=== PATIENT | female | born 1955 | race Caucasian/White ===

== ENCOUNTER 2018-08-21 11:35 | Observation (INO) | payer OTHER, SELFPAY ==
[2018-08-21] VITALS (15 sets, daily range): BP systolic 91–202; BP diastolic 49–101; PULSE 72–115; RESP 12–20; TEMP 36.1–37.3; O2SAT 92–100; BMI 27.4
--- NOTE | 2018-08-21 | DI.RAD.S_ITS ---
PROCEDURE: XR ANKLE LT MIN 3V INDICATIONS: LEFT ANKLE FRACTURE TECHNIQUE: 3 views of the ankle were acquired. COMPARISON: [facility], CR, XR ANKLE LT MIN 3V, 08/21/2018, 11:59. FINDINGS: 3 intraoperative fluoroscopy images demonstrate open reduction and internal fixation of distal tibial and distal fibular fractures. There is improved alignment. IMPRESSION: Open reduction and internal fixation of distal tibial and fibular fractures. Dictated by: Nilson Ruiz M.D. on 08/21/2018 at 17:06 Approved by: Nilson Ruiz M.D. on 08/21/2018 at 17:08
--- NOTE | 2018-08-21 11:55 | DI.RAD.S_ITS ---
PROCEDURE: XR ANKLE LT MIN 3V INDICATIONS: injury, deformity, pain TECHNIQUE: 3 views of the ankle were acquired. COMPARISON: None. FINDINGS: Bones: There is a mildly comminuted fracture identified with slight posterior angulation of the distal fibula shaft. An additional fracture is evident involving the lateral margin of the tibial plateau, which may represent a posterior malleolar fracture. Corresponding widening of the distal tibiofibular syndesmosis is evident. There is a transverse fracture evident extending through the lateral malleolus with lateral displacement of the distal fracture fragment by approximately 8 mm. Offset of the ankle mortise is present. No additional fractures are seen. No suspicious osseous lesions are evident. There is no dislocation. Soft tissues: Soft tissue edema about the ankle is present. There likely is an ankle effusion. IMPRESSION: 1. Comminuted and essentially nondisplaced fracture of the distal fibula. 2. Medial and posterior malleolar fractures of the distal tibia. 3. Widening of the distal tibiofibular syndesmosis. Dictated by: Johnie Valdes M.D. on 08/21/2018 at 11:25 Approved by: Johnie Valdes M.D. on 08/21/2018 at 11:33
--- NOTE | 2018-08-21 12:01 | PC.NURSE ---
Pt reports I had to hold my foot on. Open, bleeding compound fracture
--- NOTE | 2018-08-21 12:35 | DI.RAD.S_ITS ---
PROCEDURE: XR CHEST 1V INDICATIONS: pre-op TECHNIQUE: One view of the chest was acquired. COMPARISON: None. FINDINGS: Surgical changes and devices: None. Lungs and pleura: Lungs are clear. No pleural effusions or pneumothorax. Mediastinum: Mediastinal contours appear normal. Heart size is normal. Bones and chest wall: No suspicious bony lesions. Overlying soft tissues appear unremarkable. IMPRESSION: No acute cardiopulmonary disease process. Dictated by: Pretty Pierson MD, PhD on 08/21/2018 at 13:31 Approved by: Pretty Pierson MD, PhD on 08/21/2018 at 13:39
[2018-08-21] MEDS: ONDANSETRON 4 MG/2 ML INJ IV (12:46)
[2018-08-21] MEDS: HYDROMORPHONE 1 MG INJ 0.5 MG IV ×2 (12:46→13:12)
[2018-08-21] MEDS: SODIUM CHLORIDE 0.9% 1,000 ML 1000 ML IV (12:47)
[2018-08-21] MEDS: CEFAZOLIN VIAL 3 GM in SODIUM CHLORIDE 0.9% 100 ML 200 ML IV (13:01)
[2018-08-21] MEDS: TET,DIPH,PERTUSS(ACELL),VAC/PF 0.5 ML SYRINGE IM (13:16)
--- NOTE | 2018-08-21 13:18 | ED_ITS ---
HPI - Extremity Injury (Lower) General Chief Complaint: Extremity Injury, Lower Stated Complaint: Fell, Broken L Ankle Time Seen by Provider: 08/21/18 12:07 Source: patient and family Mode of arrival: EMS Limitations: no limitations History of Present Illness HPI Narrative: Patient is brought to the emergency department after falling through an open hat on her boat and injuring her left ankle. Patient states she was not hurt in any other way. Injury happened within the last 30 minutes. Patient states that she landed on her left ankle/foot, and noticed that it was deformed when her and person helped her. Patient states she grabbed her foot and straightened the deformity out. Patient states she has been able to move her toes and she does have good sensation in her foot. Patient states that she is not really having much pain, but feels slightly anxious. No previous injury to this ankle. states that when they were the patient off the boat, he noticed blood dripping out from under her pants, and they discovered a wound over the patient's medial ankle. At this point, they called EMS, who brought the patient here. Patient denies any other symptoms. No chest pain or shortness of breath. No nausea or vomiting. No abdominal pain. no hip or back pain. No neck pain. Patient did not hit her head or lose consciousness. Patient has not been ill with anything recently, and has had no fevers. She has allergies to codeine and nothing else. Last tetanus is uncertain, but patient believes it was at least 10 years ago. Related Data Home Medications Medication Instructions Recorded Confirmed No Known Home Medications 02/07/18 Previous Rx's Medication Instructions Recorded oxycodone 5 mg PO Q4-6H PRN #50 tab 08/21/18 Allergies Allergy/AdvReac Type Severity Reaction Status Date / Time codeine AdvReac Nausea Verified 08/21/18 13:55 Review of Systems Constitutional Denies chills, Denies fever(s), Denies lethargy and Denies weakness Eyes Denies change in vision, Denies eye discharge, Denies irritation and Denies loss of vision ENT Ears, Nose, Mouth, and Throat: Denies change in voice, Denies neck pain and Denies sore throat Cardiovascular Denies chest pain, Denies irregular heart rhythm, Denies lightheadedness, Denies palpitations, Denies dyspnea, Denies dyspnea on exertion and Denies orthopnea Respiratory Denies cough, Denies dyspnea, Denies dyspnea on exertion and Denies wheezing Gastrointestinal Gastrointestinal: Denies abdominal pain, Denies change in bowel habits, Denies diarrhea, Denies nausea and Denies vomiting Genitourinary Denies hematuria, Denies flank pain, Denies urinary incontinence and Denies urinary urgency Musculoskeletal Denies neck pain Comments: Ankle pain and deformity Integumentary/Breasts Denies pruritus, Denies erythema, Denies rash and Denies wounds Comments: Laceration Neurologic Denies confusion, Denies loss of vision and Denies weakness Psychiatric Denies anxiety, Denies confusion, Denies depression, Denies homicidal ideation and Denies suicidal ideation Endocrine Denies palpitations Hematologic/Lymphatic Denies easy bruising Allergic/Immunologic Denies wheezing [facility] Medical History Measles (Resolved ~1963) [place] teeth extracted (Resolved) Social History marital status: number of children: 0 household members: spouse occupational status: other (retired) Smoking Status: Never smoker alcohol intake: current substance use type: does not use Exam Initial Vital Signs Initial Vital Signs: Vital Signs Temperature 98.8 F 08/21/18 11:48 Pulse Rate 99 H 08/21/18 11:48 Respiratory Rate 20 08/21/18 11:48 Blood Pressure 202/101 H 08/21/18 11:48 Pulse Oximetry 100 08/21/18 11:48 Const General: cooperative and well developed Nutritional Appearance: well nourished Orientation: alert, awake, oriented x3 and not confused [facility] Head: normocephalic and atraumatic Ears: external ears normal Nose: external nose normal and No nasal discharge Face and sinus: face symmetric and No dry mucous membranes Mouth: oral mucosae normal and moist mucous membranes Teeth and gingiva: dentition normal Eyes General: appearance normal, both eyes and all related structures Eyelids: eyelids normal Conjunctivae: conjunctivae normal Sclera: sclerae normal Pupils: PERRL EOM: EOM intact bilaterally Neck Neck: normal visual inspection, trachea midline, No lymphadenopathy, No midline deformity and No JVD Lymphatic: No lymphedema Chest Chest: normal inspection of the chest Resp Effort & Inspection: normal respiratory effort, able to speak in complete sentences, no respiratory distress and no use of accessory muscles Auscultation: clear to auscultation bilaterally, no rales, no rhonchi and no wheezes Cardio Rate: regular rate Rhythm: regular rhythm Heart Sounds: no click, no gallops, no murmurs and no rubs Pulses: normal peripheral pulses Other: Patient has dopplerable posterior tibial and dorsalis pedis pulses in her left lower extremity. GI Inspection: non-distended Palpation: soft, no hepatosplenomegaly, No guarding, No pulsatile mass and No tender Auscultation: normal bowel sounds Back/Spine/Pelvis Back: No CVA tenderness Cervical Spine: cervical ROM normal and No pain with cervical ROM Thoracic/Lumbar Spine: thoracic and lumbar spine normal to inspection Skin General: no rashes or lesions noted, No jaundice and No petechiae Other: Patient has a 4 cm linear laceration over her medial malleolar area on the left. No bone fragments are protruding through the wound. There is tenting of the skin just inferior to the laceration. Minimal active bleeding. Neuro General: alert, oriented x3, gait normal and no focal motor deficits Speech: speech normal Other: Patient has intact distal sensory and motor capabilities in the left lower extremity, distal to the ankle. Extrem General: full ROM, no clubbing, cyanosis or edema, no pedal edema and no calf te nderness Other: Patient has obvious deformity of the left ankle, with global tenderness about the ankle joint. Bony fragments are palpable superficially, just beneath the skin. Skin wound over the medial malleolus is as noted above. No bony fragments are protruding. Patient is able to move her toes. Moderate edema of the ankle is noted. Psych Appearance: well kempt Mental Status: mental status grossly normal Attitude: cooperative Thought Content: normal and suicidality Judgment: judgment good Course Course Narrative: Patient was evaluated immediately upon arrival by myself in the emergency department. He x-rays were obtained, and showed a fracture dislocation of the patient's left ankle, as well as a fracture of the distal shaft of the left tibia. I did speak with Dr. Salguero who is on-call for Orthopedics, and he did come and evaluate the patient in the emergency department. He did state his intention to take the patient to surgery for operative management of her injury. Patient was given a tetanus shot and a dose of Ancef. The wound was washed with saline and Betadine. At this point, the patient is neurovascularly intact, and had reduced her ankle reasonably well herself, and so no further reduction attempts were made in the emergency department. Patient was given 1 bolus of 0.9 normal saline and was given serial doses of Dilaudid, according to her pain level. Preoperative labs, EKG, and chest x-ray were ordered by me. Patient was transferred to the operating shortly afterward. Orders Ordered: ED Orders 08/21/18 11:55 XR ankle LT min 3V Stat 08/21/18 12:35 XR chest 1V Stat EKG-12 Lead Stat Discontinued Medications Albuterol (Ventolin) 2.5 mg INH NOW PRN PRN Reason: Coughing, Wheezing, Dyspnea Bupivacaine HCl (Sensorcaine 0.5% (Pf)) 30 ml INJ NOW ONE Stop: 08/21/18 15:50 Last Admin: 08/21/18 15:50 Dose: 16 ml Diphtheria/Tetanus/Acell Pertussis (Adacel) 0.5 ml IM .ONCE ONE Stop: 08/21/18 13:13 Last Admin: 08/21/18 13:16 Dose: 0.5 ml Fentanyl (Sublimaze) 50 mcg IV Q5MIN PRN PRN Reason: Pain, Moderate (4-6) Hydromorphone HCl (Dilaudid) 0.5 mg IV NOW ONE Stop: 08/21/18 12:32 Last Admin: 08/21/18 12:46 Dose: 0.25 mg Hydromorphone HCl (Dilaudid) 0.5 mg IV NOW ONE Stop: 08/21/18 13:07 Last Admin: 08/21/18 13:12 Dose: 0.25 mg Hydromorphone HCl (Dilaudid) 0.5 mg IV NOW ONE Stop: 08/21/18 13:30 Last Admin: 08/21/18 13:35 Dose: 0.5 mg Hydromorphone HCl (Dilaudid) 0.5 mg IV Q5MIN PRN PRN Reason: Pain, Moderate (4-6) Sodium Chloride (Normal Saline 0.9%) 1,000 mls @ 1,000 mls/hr IV BOLUS ONE Stop: 08/21/18 13:30 Last Infusion: 08/21/18 13:36 Dose: 1,000 mls/hr Admin: 08/21/18 12:47 Dose: 1,000 mls/hr Cefazolin Sodium 3 gm/ Sodium (Chloride) 100 mls @ 200 mls/hr IV NOW ONE Stop: 08/21/18 12:32 Last Infusion: 08/21/18 13:36 Dose: 0 mls/hr Admin: 08/21/18 13:01 Dose: 200 mls/hr Lactated Ringer's (Lactated Ringers) 1,000 mls @ 42 mls/hr IV CONT CHELSEA Last Infusion: 08/21/18 18:36 Dose: 0 mls/hr Admin: 08/21/18 13:57 Dose: 42 mls/hr Cefazolin Sodium 1 gm/ Sodium (Chloride) 100 mls @ 200 mls/hr IV NOW ONE Stop: 08/21/18 15:21 Last Infusion: 08/21/18 15:25 Dose: 0 mls/hr Admin: 08/21/18 15:20 Dose: 200 mls/hr Cefazolin Sodium/Dextrose (Ancef) 1 gm in 50 mls @ 100 mls/hr IV NOW ONE Stop: 08/21/18 16:59 Lorazepam (Ativan) 0.25 mg IV NOW PRN PRN Reason: Anxiety Meperidine HCl (Demerol) 25 mg IV Q5MIN PRN PRN Reason: Pain or shivering Metoclopramide HCl (Reglan) 10 mg IV NOW PRN PRN Reason: Nausea And Vomiting Ondansetron HCl (Zofran) 4 mg IV NOW ONE Stop: 08/21/18 12:32 Last Admin: 08/21/18 12:46 Dose: 4 mg Ondansetron HCl (Zofran) 4 mg IV NOW PRN PRN Reason: Nausea And Vomiting Scopolamine (Transderm-Scop) 1 patch TOP NOW ONE Stop: 08/21/18 14:25 Last Admin: 08/21/18 14:25 Dose: 1 patch Admin: 08/21/18 14:25 Dose: 1 patch Vital Signs - 8 hr 08/21/18 11:48 08/21/18 12:30 08/21/18 13:01 Temperature 98.8 F Pulse Rate 99 H 102 H 107 H Pulse Rate [Dorsalis Pedis] 99 H Respiratory Rate 20 18 Blood Pressure 202/101 H Blood Pressure [Right Arm] 201/96 H 183/96 H Pulse Oximetry 100 100 100 08/21/18 13:37 08/21/18 13:53 08/21/18 17:08 Temperature 99.2 F 97 F L Pulse Rate 106 H 115 H 77 Pulse Rate [Dorsalis Pedis] Respiratory Rate 20 16 15 Blood Pressure 188/86 H 202/98 H 91/49 L Blood Pressure [Right Arm] Pulse Oximetry 98 96 92 08/21/18 17:13 08/21/18 17:18 08/21/18 17:23 Temperature Pulse Rate 75 72 75 Pulse Rate [Dorsalis Pedis] Respiratory Rate 14 12 12 Blood Pressure 95/54 L 96/58 L 116/69 Blood Pressure [Right Arm] Pulse Oximetry 94 95 96 08/21/18 17:28 08/21/18 17:33 08/21/18 17:43 Temperature Pulse Rate 88 85 90 Pulse Rate [Dorsalis Pedis] Respiratory Rate 16 20 20 Blood Pressure 155/78 H 155/90 H 152/86 H Blood Pressure [Right Arm] Pulse Oximetry 100 100 100 08/21/18 17:48 08/21/18 17:53 08/21/18 18:05 Temperature 97.5 F L Pulse Rate 90 96 H 92 H Pulse Rate [Dorsalis Pedis] Respiratory Rate 20 20 20 Blood Pressure 180/96 H 166/86 H 178/93 H Blood Pressure [Right Arm] Pulse Oximetry 100 99 100 MDM - Extremity Injury (Lower) Medical Records Attestation: I reviewed the patient's medical records. Imaging Data X-ray left ankle: Radiologist's impression: PROCEDURE: XR ANKLE LT MIN 3V INDICATIONS: injury, deformity, pain TECHNIQUE: 3 views of the ankle were acquired. COMPARISON: None. FINDINGS: Bones: There is a mildly comminuted fracture identified with slight posterior angulation of the distal fibula shaft. An additional fracture is evident involving the lateral margin of the tibial plateau, which may represent a posterior malleolar fracture. Corresponding widening of the distal tibiofibular syndesmosis is evident. There is a transverse fracture evident extending through the lateral malleolus with lateral displacement of the distal fracture fragment by approximately 8 mm. Offset of the ankle mortise is present. No additional fractures are seen. No suspicious osseous lesions are evident. There is no dislocation. Soft tissues: Soft tissue edema about the ankle is present. There likely is an ankle effusion. IMPRESSION: 1. Comminuted and essentially nondisplaced fracture of the distal fibula. 2. Medial and posterior malleolar fractures of the distal tibia. 3. Widening of the distal tibiofibular syndesmosis. Dictated by: Johnie Valdes M.D. on 08/21/2018 at 11:25 Approved by: Johnie Valdes M.D. on 08/21/2018 at 11:33 Chest x-ray: Radiologist's impression: [place] [address] XRay Report Signed Patient: Nuris Martinez#: [id number] : 4Acct:[id number] Age/Sex: 63 / FDate of Service: 08/21/18 Loc: [id number] Accession Number: [id number] Procedure: XR chest 1V Ordering Provider: Danna Baird MD PROCEDURE: XR CHEST 1V INDICATIONS: pre-op TECHNIQUE: One view of the chest was acquired. COMPARISON: None. FINDINGS: Surgical changes and devices: None. Lungs and pleura: Lungs are clear. No pleural effusions or pneumothorax. Mediastinum: Mediastinal contours appear normal. Heart size is normal. Bones and chest wall: No suspicious bony lesions. Overlying soft tissues appear unremarkable. IMPRESSION: No acute cardiopulmonary disease process. Dictated by: Pretty Pierson MD, PhD on 08/21/2018 at 13:31 Approved by: Pretty Pierson MD, PhD on 08/21/2018 at 13:39 ECG Data Attestation: I personally reviewed and interpreted this ECG as follows: (See below) Interpretation: Twelve lead EKG performed on August 21, 2018 at 12:41 p.m., as follows: Regular ventricular rhythm with a rate of 105 beats per minute ME interval 136 milliseconds QRS duration 83 milliseconds QTC interval [address] T wave changes No ectopy Interpretation: Sinus tachycardia; possible left atrial enlargement; possible left ventricular hypertrophy; nonspecific ST T wave changes; abnormal EKG as interpreted by ED MD Discharge Plan Departure Patient Disposition: Admitted As Inpatient Clinical Impression: Ankle fracture, Ankle dislocation Discharge Date/Time: 08/21/18 13:38 Interventions: ED Discharge Assessment Last Done: 08/21/18 13:37 Admit Date/Time: 08/21/18 13:08 Admit Provider: Jason Salguero
[2018-08-21] MEDS: HYDROMORPHONE 0.5 MG INJ IV (13:35)
[2018-08-21] MEDS: LACTATED RINGERS 1,000 ML 42 ML IV (13:57)
--- NOTE | 2018-08-21 13:58 | SUR.HOLD ---
Cefazolin completed at 1350.
--- NOTE | 2018-08-21 14:24 | PM.HP.1 ---
History of Present Illness Chief complaint: Fell, Broken L Ankle Patient History Medical History Measles (Resolved ~1963) [place] teeth extracted (Resolved) Family & Social History Social History: household members spouse Prior Living Arrangements House Safety & Behavioral: Feels Safe in Current Yes Environment Been Physically Hurt or No Threatened By a Person Tobacco & Substance use: Smoking Status Never smoker alcohol intake current alcohol intake frequency a few times a month Substance Use Type does not use Meds Home Medications Medication Instructions Recorded Confirmed Type No Known Home Medications 02/07/18 History Allergies Allergy/AdvReac Type Severity Reaction Status Date / Time codeine AdvReac Nausea Verified 08/21/18 13:55 Exam Vital Signs (past 8 hours): - 08/21/18 11:48 08/21/18 12:30 08/21/18 13:01 Temperature 98.8 F Pulse Rate 99 H 102 H 107 H Pulse Rate [Dorsalis Pedis] 99 H Respiratory Rate 20 18 Blood Pressure 202/101 H Blood Pressure [Right Arm] 201/96 H 183/96 H Pulse Oximetry 100 100 100 08/21/18 13:37 08/21/18 13:53 Temperature 99.2 F Pulse Rate 106 H 115 H Pulse Rate [Dorsalis Pedis] Respiratory Rate 20 16 Blood Pressure 188/86 H 202/98 H Blood Pressure [Right Arm] Pulse Oximetry 98 96 Oxygen Delivery Method Room Air Extrem Other: L ankle with 2 inch open medial wound with exposed medial malleous bone due to traumatic soft tissue laceration/abrasion L foot toes well perfused, sensibility intact. Objective Imaging ankle: My impression: L ankle trimalleolar fracture with comminution of medial and lateral malleolus with syndesmosis disruption Assessment & Plan Assessment & Plan narrative: 63 yo F with left ankle open fracture dislocation after a fall. She was reduced at the scene. She has a 2 inch medial wound with exposed fracture. I discussed my findings with her. I discussed treatment plan with risks and benefits. She is scheduled for emergent left ankle ORIF with I&D.
[2018-08-21] MEDS: SCOPOLAMINE 1 PATCH TOP ×2 (14:25)
[2018-08-21] MEDS: CEFAZOLIN VIAL 1 GM in SODIUM CHLORIDE 0.9% 100 ML 200 ML IV (15:20)
--- NOTE | 2018-08-21 15:40 | SUR.OPER ---
Supine on padded OR bed, head on pillow, arms secured on padded arm boards at <90 degrees abduction, legs uncrossed, safety belt at thigh, bump under left hip, tape over blanket over right lower leg, left leg under control of surgeon.
[2018-08-21] MEDS: BUPIVACAINE 0.5% (PF) VIAL 30 ML INJ (15:50)
--- NOTE | 2018-08-21 17:10 | P.OP_ITS ---
Operative Date/Time/Diagnoses Date of procedure: 08/21/18 Time of procedure: 14:21 Pre-op diagnosis: Left ankle trimalleolar ankle fracture dislocation Post-op diagnosis: same Procedure & Clinicians Procedure: 1. Left ankle open reduction internal fixation with bimalleolar internal fixation hardware 2. Syndesmosis open reduction and internal fixation 3. Irrigation and debridement of skin, muscle and bone Same procedure as scheduled: Yes Indications: Ms. Martinez is a 63 yo F who fell from 6 feet on her boat through open [place] and sustained an open fracture dislocation of her left ankle. She was reduced at the scene by her friend. She was transferred to ED and after x-ray was taken orthopaedic service was consulted. Pt is found to have a 2 inch open wound on the medial aspect of her ankle with exposed bone. She was consented of risks of surgery and taken to the operating room emergently. Surgeon: Jason Salguero Process Development Manager: Shelia Orozco Click Yes if Unassisted: No Anesthesia Type: General Operative Notes Closure Type: primary Specimen(s): none sent Prosthetic devices, grafts, tissues, transplants, or devices: Small frag, 1/3 tubular plate, partially threaded and fully threaded small frag screws Estimated Blood Loss (mL): 10 Blood products transfused: none Tourniquet time (min): 89 Procedure in detail: Patient was identified in the preoperative area. Informed consent was obtained and placed in the chart. Surgical site was marked. Patient was then taken to the operating room. Prophylactic antibiotic was given less than half our prior to skin incision. General anesthesia was administered. A tourniquet was placed on patient's right upper thigh. Patient's right lower extremity was prepped and draped in a sterile fashion from the toes all the way to the tourniquet. Time-out was pe rformed at this time. Patient's right leg was then exsanguinated using the Esmarch. Tourniquet was then inflated to 250 mm Hg. A lateral incision was made directly over the fracture of the lateral malleolus. The fracture site was exposed. The tibial talar joint was also inspected after the fracture site was exposed. There were several small pieces of loose fragments of bone inside the joint. The loose fragments was removed using pickups suction. There are also several small area with cartilage injury on the talus from the traumatic fracture dislocation. The fracture hematoma was debrided using the curette and [place]. Patient's fracture site was found to be severely comminuted over the lateral malleolus. There were over a dozen small fragments with no opposable pieces to reconstruct the cortical contact. X-ray was used to align the lateral malleolus to reproduce the length of the fibula. A 8 hole 1/3 tubular plate was placed over the lateral malleolus and held in place with lobster claw clamp. 2.5 mm drill was used to drill and fill the proximal 3 holes with fully-threaded cortical screws. One of the distal holes was drilled and filled with a fully-threaded cortical screw in the 3rd to most distal hole of the plate. The plate was stabilized to the lateral malleolus while the plate was held in the reduced position by drilling and filling the holes of the 1/3 tubular plate. Depth gauge was used to measure the length of the screws. After placement of all the hardware AP and lateral C-arm imaging was taken to confirm placement of the hardware as well as reduction of the fracture. The ankle fracture was stabilized by placing the plate and screw combination. Incision was made over the medial malleolus by extending the patient's medial traumatic wound approximately 2 cm to the proximal to the tip of the medial malleolus to the tip. Dissection was made down to the level of the periosteum using Metzenbaum scissors. Fracture site was exposed. Periosteum was excised at the edge of the fracture. Hematoma and fragments of bone was freed from the fracture site using micro curette. The tibial talar joint was then inspected. There were multiple loose fragments of cartilage and bone inside the tibiotalar joint which was removed using pickups irrigation and micro curette. There were several areas of cartilaginous injury on the talus from the trauma. Next a [id number] reduction clamp was used to reduce the medial malleolus. AP and lateral C-arm imaging was used to confirm the reduction which was anatomic. 2.5mm drill bit was used to drill from the tip of the medial malleolus towards the metaphysis. A 2nd 25 drill bit was used to drill in the same fashion from distal tip towards the metaphysis in a parallel fashion. Two 45 mm partially threaded cancellous screw was used to stabilize the fracture after the drill bits was removed from the tip of the medial malleolus both screws had good purchase. AP and lateral x-ray was used to confirm the reduction and maintenance of the reduction of the fracture. Excellent reduction and maintenance of the reduction was confirmed with the x-ray imaging intraoperatively. At this time a large periarticular clamp was used to reduce patient's syndesmosis by debriding the syndesmosis of any fragments of bone. C-arm imaging was obtained to confirm the reduction of the syndesmosis. The distal 2 holes of the 1/3 tubular plate was drilled and filled with fully-threaded cancellous screws through the syndesmosis to hold it in the reduced position. 1 cc of demineralized bone matrix bone grafting material was placed into the lateral malleolus fracture site due to the severe comminution and the gap in between the ends of the fracture to promote bone growth and improve the chance of bony union. The wound was then closed using a 2-0 Vicryl and 3-0 nylon suture. Patient's right ankle was then placed into a short-leg posterior splint. Patient was then transferred to recovery room in stable condition. Patient will be instructed to be nonweightbearing to her right ankle for 4 weeks. Patient is instructed to return to clinic in 2 weeks for suture removal and also placed into a short-leg cast. Patient can start weight-bearing in the CAM walker 4 weeks after surgery. The patient is is to be strictly nonweightbearing to her left lower extremity for 4 weeks. Complications: none Condition: stable Disposition: PACU Plan for aftercare: Discharge to home
== END 2018-08-21 18:31 | disposition home or self-care (01) ==
LOC: ED 12:07 → AC 13:11
PROVIDERS: Admitting Provider Orthopaedic Surgery Orthopaedic Surgery of the Spine; Emergency Provider Emergency Medicine; PCP Family Medicine; Visit Provider Orthopaedic Surgery Orthopaedic Surgery of the Spine
PROC: (CPT 27814; principal; 2018-08-21 15:15)
DX: S82.852B Displaced trimalleolar fracture of left lower leg, initial encounter for open fracture type I or II (principal); W18.39XA Other fall on same level, initial encounter; Y92.814 Boat as the place of occurrence of the external cause; Z23 Encounter for immunization; R00.0 Tachycardia, unspecified
CPT/HCPCS: 27814; 27829; 71045; 73610; 76000; 90471; 93005; 96365; 96375; 96376; 99283; 99284; G0378; 90715; J0690; J1100; J1170; J2405; J2704

== ENCOUNTER 2022-08-08 02:30 | Emergency (ER) | payer MEDICARE, OTHER, SELFPAY ==
--- NOTE | 2022-08-08 | DI.RAD.S_ITS ---
PROCEDURE: XR CHEST 1V INDICATIONS: heart rate TECHNIQUE: One view of the chest was acquired. COMPARISON: [facility], CR, XR CHEST 1V, 08/21/2018, 12:58. FINDINGS: Surgical changes and devices: None. Lungs and pleura: Lungs are clear. No pleural effusions or pneumothorax. Mediastinum: Mediastinal contours appear normal. Heart size is normal. Bones and chest wall: No suspicious bony lesions. Overlying soft tissues appear unremarkable. IMPRESSION: No acute cardiopulmonary disease. No significant discrepancy with the hotel night auditor radiology preliminary report. Dictated by: Nilson Ruiz M.D. on 08/08/2022 at 8:56 Approved by: Nilson Ruiz M.D. on 08/08/2022 at 8:57
--- NOTE | 2022-08-08 05:45 | PC.NURSE ---
Please see paper chart for visit notes
--- NOTE | 2022-08-08 05:49 | ED.GENADULT ---
HPI - General Adult General Stated complaint: high blodd pressure Time Seen by Provider: 08/08/22 05:46 History of Present Illness HPI narrative: 68-year-old female nonsmoker with newly diagnosed hypertension presents by EMS for evaluation of palpitations.? She states that just a week ago she was started on lisinopril 5 mg p.o. and chlorthalidone 25 mg p.o. due to newly discovered high blood pressure.? Her blood pressures had been in the 230s over 100s though she is largely asymptomatic.? Tonight she was awoken with the sensation of a heartbeat and palpitations as well as whooshing in her ears, she took her blood pressure and found it to be quite elevated again and activated EMS.? On their arrival they found her blood pressure to be in the 220s and at the time she was complaining of little to no symptoms other than that which is noted above.? Specifically she has no headache or blurred vision, no numbness, tingling or weakness.? No chest pain or shortness of breath.? No nausea, vomiting or diarrhea and no abdominal pain.? She was given 1 dose of nitro which brought her blood pressure down to the 150s at which point she was completely asymptomatic. Related Data Home Medications Medication Instructions Recorded Confirmed No Known Home Medications 02/07/18 Previous Rx's Medication Instructions Recorded oxycodone 5 mg tablet 5 mg PO Q4-6H PRN pain #50 tabs 08/21/18 Allergies Allergy/AdvReac Type Severity Reaction Status Date / Time codeine AdvReac Nausea Verified 08/21/18 13:55 Review of Systems Review of Systems Narrative: GENERAL: Denies chills, fatigue, malaise, fever, sweats. HEENT: Denies sinus pain, ear pain, sore throat, difficulty swallowing, dizziness. RESPIRATORY: Denies dyspnea, cough, wheezing, hemoptysis, sputum. CARDIOVASCULAR: ?See HPI GASTROINTESTINAL: Denies nausea, vomiting, abdominal pain, diarrhea, constipation, melena. : Denies dysuria, frequency, incontinence, hematuria, urinary retention. MUSCULOSKELETAL: denies weakness, joint pain, or bony pain SKIN: Denies rash, skin lesions, or other NEUROLOGIC: Denies weakness, headache, numbness, change in speech, confusion, seizures, incoordination. PSYCHIATRIC: No concerning psychosocial issues. 12 point review of systems is negative except for those stated above Patient History Medical History (Updated 08/08/22 @ 05:53 by Alban Sparks DO) Measles (~1965) Surgical History [place] teeth extracted Social History marital status: number of children: 0 household members: spouse occupational status: other (retired) Smoking Status: Never smoker alcohol intake: current substance use type: does not use Smoking Status: Never smoker alcohol intake frequency: a few times a month Substance Use Type: does not use Exam Narrative Exam Narrative: GENERAL: [68] year old patient appears stated age. Well-developed patient, in mild distress. HEAD: Atraumatic. Normocephalic. EYES: Pupils equal round and reactive. Extraocular motions intact. No scleral icterus. No injection or drainage. ENT: Nose without bleeding, purulent drainage. Throat without erythema, tonsillar hypertrophy or exudate. Airway patent. NECK: Trachea midline. Non tender CARDIOVASCULAR: Regular rate and rhythm without murmurs, gallops, or rubs. RESPIRATORY: Clear to auscultation. Breath sounds equal bilaterally. No wheezes, rales, or rhonchi.? GASTROINTESTINAL: Abdomen soft, non-tender, nondistended. EXTREMITIES: No edema or joint tenderness. BACK: Nontender without deformity or crepitance. No flank tenderness. NEURO: AOx3. SKIN: No rash or erythema of visible areas Course Reevaluation(s) Reevaluation #1: 30 minutes into the visit blood pressures down to the 170s over 80s and patient is completely asymptomatic and remains there for the duration of visit Medical Decision Making MDM Narrative Medical decision making narrative: [67] year old patient presents with minimally symptomatic hypertension initially that resolves with blood pressure improvement Multiple etiologies for patient's symptoms considered including, but not limited to: Hypertension, cardiac ischemia, pneumonia versus other [] Prior Charts reviewed in our EMR Primary Historian: patient Labs reviewed and interpreted by myself: No significant abnormalities Imaging reviewed: No acute process Patient's symptoms improved over duration of stay with above-stated therapies. Patient had complete resolution of symptoms when blood pressure improved to the 170s. We had a lengthy discussion about how to proceed from here and patient would very much prefer to come off of the chlorthalidone stating that she really does not want to be on diuretics. She states that at no point has she been short of breath or had swelling of her lower extremities. We discussed multiple options moving forward and agreed that increasing the dose of her lisinopril is easiest and most safe given the fact that she is already been on it for the past few days. She will increase her dose to 10 mg daily and will follow closely with her primary care provider. Findings and discharge diagnosis discussed with patient/family followed by verbalization of understanding Return precautions discussed with patient/family whom verbalize understanding of diagnosis and plan Discharge Plan Departure Patient Disposition: Home Clinical Impression: HTN (hypertension) Activity Restrictions/Additional Instructions: *You have been diagnosed with [hypertension] *What to do: * as we discussed please stop taking your chlorthalidone and increase her lisinopril to 10 mg daily, otherwise take your medications as directed [ ] New medication prescriptions sent to your pharmacy: [ ] [ ] New medication written as a paper prescription [ ] No new medications given *Please follow up with your primary care provider in 2-3 days, call for an appointment. Let them know you were seen in the Emergency Department and that we ask that you be seen in follow up. We will electronically transmit a record of today's note if your PCP is in our system *Return to Emergency Department if you should have any new, worsening or concerning symptoms, such as [fever greater than 101 F, shaking chills, worsening pain, persistent vomiting or other bothersome symptoms] Prescriptions: No Action No Known Home Medications oxycodone 5 mg tablet 5 mg PO Q4-6H PRN (Reason: pain) Qty: 50 0RF Rx Instructions: May take 1-2 tab every 4-6 hours as needed for pain Referrals: Rosa Arellano DO [Primary Care Provider] - Stand Alone Forms: Patient Portal/API
[2022-08-08 06:28] LABS: Add Manual Diff / Slide Review NO; Basophils Absolute Auto 100 /uL (0-100); Eosinophils Absolute Auto 200 /uL (0-450); Eosinophils Percent Auto 3.1 % (2-4); Hematocrit 43.9 % (36-46); Hemoglobin 14.8 g/dL (12.0-16.0); Lymphocytes Absolute Auto 3400 /uL (1100-4500); Lymphocytes Percent Auto 48.6 % (25-40); Mean Corpuscular HGB Conc 33.8 % (30-36); Mean Corpuscular Hemoglobin 29.6 PG (26-34); Mean Corpuscular Volume 87.7 fL (80-100); Monocytes Absolute Auto 500 /uL (0-900); Monocytes Percent Auto 7.4 % (3-14); Neutrophils Absolute Auto 2800 /uL (1500-7000); Neutrophils Percent Auto 39.9 % (50-75); Platelet Count 338 X10^3/uL (150-400); Red Blood Cell Count 5.01 X10^6/uL (4.0-5.2); Red Cell Distribution Width 13.1 % (11.6-14.8); White Blood Cell Count 7.1 X10^3/uL (4.5-11.0)
[2022-08-08 06:31] LABS: Alanine Aminotransferase 34 IU/L (<35); Albumin 5.2 g/dL (3.5-5.0); Albumin Globulin Ratio 1.5 (1.0-2.8); Alkaline Phosphatase 66 U/L (38-126); Aspartate Aminotransferase 46 IU/L (14-36); BUN Creatinine Ratio 20.9 (6-22); Bilirubin Total 0.7 mg/dL (0.2-1.3); Blood Urea Nitrogen 18 mg/dL (7-17); Calcium 9.8 mg/dL (8.4-10.2); Carbon Dioxide 29 mmol/L (22-32); Chloride 93 mmol/L (98-107); Creatine Kinase 216 U/L (30-135); Estimated Glomerular Filt Rate > 60 mL/min (>60); Globulin 3.4 g/dL (1.7-4.1); Glucose 137 mg/dL (80-110); HEMOLYSIS < 15 (0-50); NT-proBNP (BNP-Adult 18+) 21 pg/mL (<125); Potassium 3.2 mmol/L (3.4-5.1); Sodium 134 mmol/L (137-145); Total Protein 8.6 g/dL (6.3-8.2); Troponin I < 0.012 ng/mL (0.01-0.034)
[2022-08-08 06:32] LABS: CKMB % Relative Index 1.2 % (1.5-5.0); Creatine Kinase MB 2.65 ng/mL (<2.37)
== END 2022-08-08 05:46 | disposition home or self-care (01) ==
PROVIDERS: Emergency Provider Emergency Medicine; PCP Family Medicine
DX: R00.2 Palpitations (principal); I10 Essential (primary) hypertension
CPT/HCPCS: 71045; 80053; 82550; 82553; 83880; 84484; 85025; 93005; 93010; 99284

== ENCOUNTER 2022-08-23 06:45 | Emergency (ER) | payer MEDICARE, OTHER, SELFPAY ==
[2022-08-23] VITALS (20 sets, daily range): BP systolic 153–231; BP diastolic 79–113; PULSE 86–106; RESP 10–32; TEMP 36.2; O2SAT 98–100
--- NOTE | 2022-08-23 06:50 | DI.RAD.S_ITS ---
PROCEDURE: XR CHEST 1V INDICATIONS: chest pain TECHNIQUE: One view of the chest was acquired. COMPARISON: [facility], CR, XR CHEST 1V, 08/08/2022, 3:02. FINDINGS: Surgical changes and devices: None. Lungs and pleura: Lungs are clear. No pleural effusions or pneumothorax. Mediastinum: Mediastinal contours appear normal. Heart size is normal. Bones and chest wall: No suspicious bony lesions. Overlying soft tissues appear unremarkable. IMPRESSION: No acute cardiopulmonary disease. Dictated by: Nilson Ruiz M.D. on 08/23/2022 at 8:09 Approved by: Nilson Ruiz M.D. on 08/23/2022 at 8:09
--- NOTE | 2022-08-23 07:09 | ED.GENADULT ---
HPI - General Adult General Chief complaint: Hypertension Stated complaint: Elevated BP/Anxiety Time Seen by Provider: 08/23/22 06:50 Source: patient Mode of arrival: Ambulatory Limitations: no limitations History of Present Illness HPI narrative: This is a 67-year-old female with newly diagnosed hypertension who is currently taking 10 mg of lisinopril, she took 20 mg yesterday. Patient states for the last 3 or 4 nights she is woken up with a bounding in her chest and sometimes her abdomen, slightly clammy, occasionally lightheaded, with elevated blood pressure. Patient denies any syncope. She denies any headache, chest pain or abdominal pain. She denies any shortness of breath. She states little nausea today but typically has not. She denies any diarrhea or constipation. No black or bloody stools. No urinary symptoms. No swelling in her extremities. Patient states that her symptoms are always at nighttime. Patient states overnight she woke up at about 3:00 a.m. checked her blood pressure was in the 160 range, stable to fall asleep and wake up with a sensation. She states she feels very anxious. She rechecked her blood pressure through the morning and 5:00 a.m. was in the 200 range to 190 range fairly consistently. Patient has a list of her blood pressure since August 15 she is been ranging 120s to 140s pretty persistently and was initially started on lisinopril 5 mg with chlorthalidone by her primary care after a annual checkup no water to be hypertensive. Sees patients. The chlorthalidone at her last ER visit. She was here per 08/08/22 and had her blood pressure medication increased to 10 mg. Patient states afterwards blood pressure continued to be appropriate. She was here with similar symptoms at that time. Patient states no other daily medications. She is had a prior ankle surgery but denies any other surgical history. Allergies include codeine which causes nausea. No tobacco, 2-3 alcoholic drinks 3-4 times weekly. No illicit. She is accompanied by her . Related Data Home Medications Medication Instructions Recorded Confirmed No Known Home Medications 02/07/18 Previous Rx's Medication Instructions Recorded oxycodone 5 mg tablet 5 mg PO Q4-6H PRN pain #50 tabs 08/21/18 Allergies Allergy/AdvReac Type Severity Reaction Status Date / Time codeine AdvReac Nausea Verified 08/21/18 13:55 Review of Systems Review of Systems ROS Unobtainable: All systems reviewed & are unremarkable except as noted in HPI and below Patient History Medical History (Updated 08/23/22 @ 09:43 by Smitha Meyer DO) Measles (~1965) Surgical History [place] teeth extracted Social History marital status: number of children: 0 household members: spouse occupational status: other (retired) Smoking Status: Never smoker alcohol intake: current substance use type: does not use Smoking Status: Never smoker alcohol intake frequency: a few times a month Substance Use Type: does not use Exam Narrative Exam Narrative: GENERAL: Alert and oriented x three, well-nourished female in mild distress. HEENT: Head normocephalic, atraumatic, EOMI, pupils reactive, face symmetric, moist mucous membranes NECK: Supple, full range of motion CARDIOVASCULAR: Regular rate and rhythm without murmurs, rubs or gallops. RESPIRATORY: Breath sounds equal bilaterally, no wheezes rales or rhonchi. No tachypnea or accessory muscle use. Speaks in full sentences. ABDOMEN: Soft, nontender. Normoactive bowel sounds all 4 quadrants. No guarding or rebound, rigidity, no mass, no pulsatile mass or bruit. : No CVA tenderness EXTREMITIES: Normal range of motion, no clubbing or edema. Neurovascularly intact NEUROLOGICAL: Cranial nerves II through XII grossly intact. Moving all extremities SKIN: Warm, dry, no petechiae, no rashes or lesions. Initial Vital Signs Initial Vital Signs: Vital Signs Temperature 97.2 F L 08/23/22 06:49 Pulse Rate 106 H 08/23/22 06:49 Respiratory Rate 18 08/23/22 06:49 Blood Pressure 225/109 H 08/23/22 06:49 Pulse Oximetry 99 08/23/22 06:49 Course Orders Ordered: ED Orders 08/23/22 06:50 XR chest 1V Stat 08/23/22 07:25 CT angio chest abdomen pelvis Stat 08/23/22 07:55 EKG-12 Lead Stat 08/23/22 08:21 Complete Blood Count AUTO DIFF Stat Comprehensive Metabolic Panel Stat Lipase Stat NT-proBNP (BNP-Adult 18+) Stat Troponin & CK Cardiac Panel Stat Discontinued Medications Sodium Chloride (Normal Saline 0.9%) 1,000 mls @ 150 mls/hr IV CONT CHELSEA Last Infusion: 08/23/22 10:16 Dose: 0 mls/hr Documented By: Admin: 08/23/22 07:47 Dose: 150 mls/hr Documented By: OLIVIA Nitroglycerin (Nitroglycerin 0.4 Mg Sl Tab) 0.4 mg SL NOW ONE Stop: 08/23/22 07:38 Last Admin: 08/23/22 07:47 Dose: 0.4 mg Documented By: OLIVIA Vital Signs Vital signs: Vital Signs - 8 hr 08/23/22 06:49 08/23/22 07:07 08/23/22 06:54 Temperature 97.2 F L Pulse Rate 106 H 93 H Respiratory Rate 18 20 Blood Pressure 225/109 H 231/113 H 216/103 H Pulse Oximetry 99 98 Oxygen Delivery Method Room Air 08/23/22 06:54 08/23/22 06:55 08/23/22 06:55 Temperature Pulse Rate 96 H 97 H Respiratory Rate Blood Pressure 204/109 H Pulse Oximetry 100 100 Oxygen Delivery Method 08/23/22 06:58 08/23/22 06:58 08/23/22 07:00 Temperature Pulse Rate 96 H Respiratory Rate Blood Pressure 211/98 H 231/113 H Pulse Oximetry 100 Oxygen Delivery Method 08/23/22 07:04 08/23/22 07:30 08/23/22 07:31 Temperature Pulse Rate 96 H 94 H 100 H Respiratory Rate 30 H 32 H 30 H Blood Pressure Pulse Oximetry Oxygen Delivery Method 08/23/22 07:31 08/23/22 07:47 08/23/22 07:46 Temperature Pulse Rate 101 H 102 H Respiratory Rate 18 Blood Pressure 226/106 H 211/100 H Pulse Oximetry 99 Oxygen Delivery Method 08/23/22 07:46 08/23/22 07:59 08/23/22 07:59 Temperature Pulse Rate 101 H Respiratory Rate 10 L Blood Pressure 211/100 H 172/86 H Pulse Oximetry 98 Oxygen Delivery Method 08/23/22 08:00 08/23/22 08:01 08/23/22 08:01 Temperature Pulse Rate 100 H 103 H Respiratory Rate 10 L 15 Blood Pressure 186/86 H Pulse Oximetry 98 98 Oxygen Delivery Method 08/23/22 08:30 08/23/22 08:38 08/23/22 08:38 Temperature Pulse Rate 92 H 92 H Respiratory Rate 30 H 18 Blood Pressure 191/88 H Pulse Oximetry 99 99 Oxygen Delivery Method 08/23/22 09:00 08/23/22 09:00 08/23/22 09:34 Temperature Pulse Rate 91 H 94 H Respiratory Rate 22 24 Blood Pressure 153/81 H Pulse Oximetry 99 Oxygen Delivery Method 08/23/22 09:35 08/23/22 09:35 08/23/22 10:00 Temperature Pulse Rate 91 H Respiratory Rate 15 Blood Pressure 158/79 H 166/81 H Pulse Oximetry 99 Oxygen Delivery Method 08/23/22 10:00 Temperature Pulse Rate 86 Respiratory Rate Blood Pressure Pulse Oximetry 100 Oxygen Delivery Method Medical Decision Making Lab Data 08/23/22 08:21 08/23/22 08:21 Labs: Lab Results 08/23/22 08/23/22 08/23/22 Range/Units 08:21 08:21 08:21 WBC 4.0 L (4.5-11.0) X10^3/uL RBC 4.14 (4.0-5.2) X10^6/uL Hgb 12.5 (12.0-16.0) g/dL Hct 36.2 (36-46) % MCV 87.5 (80-100) fL MCH 30.2 (26-34) PG MCHC 34.5 (30-36) % RDW 12.5 (11.6-14.8) % Plt Count 244 (150-400) X10^3/uL Neut % (Auto) 65.0 (50-75) % Lymph % (Auto) 25.7 (25-40) % [place] % (Auto) 7.5 (3-14) % Eos % (Auto) 0.7 L (2-4) % Baso % (Auto) 1.1 (0-2) % Neut # (Auto) 2600 (3592-8970) /uL Lymph # (Auto) 1000 L (5922-6225) /uL [place] # (Auto) 300 (0-900) /uL Eos # (Auto) 0 (0-450) /uL Baso # (Auto) 0 (0-100) /uL Sodium 135 L (137-145) mmol/L Potassium 3.9 (3.4-5.1) mmol/L Chloride 101 (98-107) mmol/L Carbon Dioxide 28 (22-32) mmol/L BUN 14 (7-17) mg/dL Creatinine 0.67 (0.52-1.04) mg/dL Estimated GFR > 60 (>60) mL/min BUN/Creatinine Ratio 20.9 (6-22) Glucose 115 H (80-110) mg/dL Calcium 8.7 (8.4-10.2) mg/dL Total Bilirubin 0.3 (0.2-1.3) mg/dL AST 31 (14-36) IU/L ALT 22 (<35) IU/L Alkaline Phosphatase 46 (38-126) U/L Total Creatine Kinase 96 (30-135) U/L CK-MB (CK-2) TNP CK-MB (CK-2) Rel Index TNP Troponin I < 0.012 (0.01-0.034) ng/mL NT-Pro-B Natriuret Pep 43 (<125) pg/mL Total Protein 6.4 (6.3-8.2) g/dL Albumin 4.0 (3.5-5.0) g/dL Globulin 2.4 (1.7-4.1) g/dL Albumin/Globulin Ratio 1.7 (1.0-2.8) Lipase 210 (23-300) U/L Imaging Data CTA chest/abd/pelvis: Radiologist's Impression: [place] [address] CT Scan Report Signed Patient: Zaira Martinez MR#: [id number] : 1955 Acct:[id number] Age/Sex: 67 / F Date of Service: 08/23/22 Loc: ED Accession Number: [id number] ?? Procedure: CT angio chest abdomen pelvis Ordering Provider: Smitha Meyer D.O. PROCEDURE:? CT ANGIO CHEST ABDOMEN PELVIS ? INDICATIONS:? htn, bounding feeling in chest and abd ? TECHNIQUE:? Precontrast 5 mm thick sections acquired from the lung apices to the iliac crests.? After the administration of intravenous contrast, 2.5 mm thick sections again acquired from the lung apices to the iliac crests.? Maximum intensity projection (MIP) oblique sagittal and coronal reformats were then acquired.? For radiation dose reduction, the following was used:? automated exposure control.? ? COMPARISON:? None. ? FINDINGS:? Image quality:? Excellent.? ? AORTA and its attachments:? Normal caliber thoracic and abdominal aorta without dissection.? Mild plaque transverse arch and descending thoracic aorta and abdominal aorta.? No stenosis.? Bovine arch anatomy.? Note great vessel aneurysm.? Mild, less than 50% soft plaque, proximal left subclavian artery.? Celiac is patent.? 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 Bilateral renal arteries and SONYA are patent.? Bilateral common iliac arteries and external iliac arteries and common femoral arteries are patent. ? Pulmonary tree:? No pulmonary emboli. ? CHEST:? Lungs and pleura:? No acute airspace opacities.? No pleural effusions or pneumothorax.? Central and peripheral airways are patent and normal in caliber.? ? Mediastinum:? Heart size is normal.? No pericardial effusion.? No mediastinal or hilar adenopathy by size criteria.? Central pulmonary arteries are normal in size.? Esophagus is normal in caliber.? Small hiatal hernia. ? Bones and chest wall:? No axillary adenopathy by size criteria.? Thyroid gland does not have significant nodules .? No suspicious bony lesions.? No vertebral body compression fractures.? ? ? ABDOMEN:? Vasculature:? Celiac trunk and mesenteric arteries are patent.? Renal arteries are also patent.? ? Solid organs:? Liver is normal in size and enhancement.? 2 cm left lobe liver cyst.? Gallbladder is unremarkable .? Biliary system is non dilated.? Pancreas enhances normally.? Spleen is normal in size and enhancement.? No adrenal nodules.? Both kidneys are normal in size and enhancement, without hydronephrosis.? ? Peritoneum and bowel:? No free fluid or air.? Bowel loops are normal in caliber and wall thickness.? Extensive sigmoid diverticulosis without evidence of diverticulitis.? ? Nodes and vessels:? No retroperitoneal or mesenteric adenopathy by size criteria.? Inferior vena cava is normal in morphology.? ? Miscellaneous:? No ventral hernias.? ? ? PELVIS:? Genitourinary:? Bladder wall thickness is normal.? ? Miscellaneous:? Small bilateral fat containing inguinal hernias.? No ventral hernias.? ? Bones:? No suspicious bony lesions.? No vertebral body compression fractures.? ? ? IMPRESSION:? ? 1. Other than mild atherosclerotic change, the thoracic and abdominal aorta are unremarkable.? They are normal caliber without dissection. ? 2. No evidence acute pulmonary emboli. ? 3. No evidence acute pulmonary process. ? 4. Mild left subclavian artery stenosis. ? 5. No evidence acute abdominal process. ? 6. Extensive sigmoid diverticulosis without evidence of diverticulitis.? ? ? No ? ? Dictated by: Art Sales M.D. on 08/23/2022 at 8:23 ? ? Approved by: Art Sales M.D. on 08/23/2022 at 8:31?? ECG Data Attestation: I personally reviewed and interpreted this ECG as follows: Prior ECG tracings: available for review Interpretation: Is tachycardia rate of 104 ME 152 QRS is 74 and QTC of 454. No acute ST elevation or depression noted. MDM Narrative Medical decision making narrative: This is a 67-year-old female with complaint of hypertension and a bounding sensation in her chest and belly at night for the past 3 or 4 nights. Patient states she was having similar symptoms and was seen on 08/08/2022. She states she was just started on lisinopril in mid July. She was seen in the ER had her lisinopril increased from 5-10 mg patient's has a list of her blood pressures which appeared to be fairly appropriate to the 140s 120s range occasionally little bit higher. The last several nights when she is woken up she wakes up from a sleep with sensation of fast heartbeat, sometimes that she can feel her bounding in her chest but also sometimes her abdomen. She denies pain, she denies chest pain or pressure, no abdominal discomfort. She denies any shortness of breath. She is had some mild nausea tonight but not persistently. She denies any neurologic changes. Patient had increased her medication to 20 mg of lisinopril just the day before. She had blood pressures 160s when she woke up at with heart rate in the 80s slowly climbed throughout the morning to 5:00 a.m. which was 200s to 190s and is still elevated here in the department. She has not been regularly having 190s to 200 range. She has not had any other new changes recently. Because of her elevated blood pressure and bounding sensation evaluation with angiography was felt appropriate does not show any dissection, aneurysm there is some mild plaque in the proximal left subclavian, [id number] origin stenosis of the SMA, no PE, small hiatal hernia. With some extensive sigmoid diverticulosis without diverticulitis. Patient's labs show sodium 135 glucose of 115, negative LFTs, troponin, WBC of 4 no other changes. Patient did have 1 dose of nitro sublingual as blood pressure was persistent after several checks. Patient's blood pressure did improve there was some transient elevation again afterwards and then patient has slowly been trending down words again. She normally takes her medication in the morning so was encouraged to take her home dose of 10 mg. Discharge Plan Departure Patient Disposition: Home Clinical Impression: Hypertension Instructions: Treatments for High Blood Pressure: More Than Just Taking a Pill, Recommendations to Help Prevent High Blood Pressure, High Blood Pressure Linked to Inflammation, Hypertension (Alternative Therapy) Activity Restrictions/Additional Instructions: Follow-up with your physician for recheck. I have discussed the additional workup with your physician about these episodes that wake you in the middle the night such as Holter monitor and/or sleep study maybe appropriate next steps. I would continue your lisinopril currently at 10 mg if you are having persistently elevated blood pressures above 140 systolic over the next several days you can increase it to 15 mg. Please return for severe headaches, new chest pain, shortness of breath, passing out, persistent vomiting, persistently fast heartbeat or other new or concerning changes. Prescriptions: No Action No Known Home Medications oxycodone 5 mg tablet 5 mg PO Q4-6H PRN (Reason: pain) Qty: 50 0RF Rx Instructions: May take 1-2 tab every 4-6 hours as needed for pain Referrals: Rosa Arellano DO [Primary Care Provider] - Stand Alone Forms: Patient Portal/API
--- NOTE | 2022-08-23 07:25 | DI.CT.S_ITS ---
PROCEDURE: CT ANGIO CHEST ABDOMEN PELVIS INDICATIONS: htn, bounding feeling in chest and abd TECHNIQUE: Precontrast 5 mm thick sections acquired from the lung apices to the iliac crests. After the administration of intravenous contrast, 2.5 mm thick sections again acquired from the lung apices to the iliac crests. Maximum intensity projection (MIP) oblique sagittal and coronal reformats were then acquired. For radiation dose reduction, the following was used: automated exposure control. COMPARISON: None. FINDINGS: Image quality: Excellent. AORTA and its attachments: Normal caliber thoracic and abdominal aorta without dissection. Mild plaque transverse arch and descending thoracic aorta and abdominal aorta. No stenosis. Bovine arch anatomy. Note great vessel aneurysm. Mild, less than 50% soft plaque, proximal left subclavian artery. Celiac is patent. 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 Bilateral renal arteries and SONYA are patent. Bilateral common iliac arteries and external iliac arteries and common femoral arteries are patent. Pulmonary tree: No pulmonary emboli. CHEST: Lungs and pleura: No acute airspace opacities. No pleural effusions or pneumothorax. Central and peripheral airways are patent and normal in caliber. Mediastinum: Heart size is normal. No pericardial effusion. No mediastinal or hilar adenopathy by size criteria. Central pulmonary arteries are normal in size. Esophagus is normal in caliber. Small hiatal hernia. Bones and chest wall: No axillary adenopathy by size criteria. Thyroid gland does not have significant nodules . No suspicious bony lesions. No vertebral body compression fractures. ABDOMEN: Vasculature: Celiac trunk and mesenteric arteries are patent. Renal arteries are also patent. Solid organs: Liver is normal in size and enhancement. 2 cm left lobe liver cyst. Gallbladder is unremarkable . Biliary system is non dilated. Pancreas enhances normally. Spleen is normal in size and enhancement. No adrenal nodules. Both kidneys are normal in size and enhancement, without hydronephrosis. Peritoneum and bowel: No free fluid or air. Bowel loops are normal in caliber and wall thickness. Extensive sigmoid diverticulosis without evidence of diverticulitis. Nodes and vessels: No retroperitoneal or mesenteric adenopathy by size criteria. Inferior vena cava is normal in morphology. Miscellaneous: No ventral hernias. PELVIS: Genitourinary: Bladder wall thickness is normal. Miscellaneous: Small bilateral fat containing inguinal hernias. No ventral hernias. Bones: No suspicious bony lesions. No vertebral body compression fractures. IMPRESSION: 1. Other than mild atherosclerotic change, the thoracic and abdominal aorta are unremarkable. They are normal caliber without dissection. 2. No evidence acute pulmonary emboli. 3. No evidence acute pulmonary process. 4. Mild left subclavian artery stenosis. 5. No evidence acute abdominal process. 6. Extensive sigmoid diverticulosis without evidence of diverticulitis. No Dictated by: Art Sales M.D. on 08/23/2022 at 8:23 Approved by: Art Sales M.D. on 08/23/2022 at 8:31
[2022-08-23] MEDS: SODIUM CHLORIDE 0.9% 1,000 ML 150 ML IV (07:47)
[2022-08-23] MEDS: NITROGLYCERIN 0.4 MG SL TAB SL (07:47)
--- NOTE | 2022-08-23 07:57 | PC.NURSE ---
Pt reports HTN and newly placed on lisinopril within the last 10 days. presents to ED with BP 200+/systolic. Denies CP. reports mild SOB and a headache. IV in place and nitro SL given x 1. EKG being obtained. at bedside.
[2022-08-23 08:29] LABS: Add Manual Diff / Slide Review NO; Basophils Absolute Auto 0 /uL (0-100); Basophils Percent Auto 1.1 % (0-2); Eosinophils Absolute Auto 0 /uL (0-450); Eosinophils Percent Auto 0.7 % (2-4); Hematocrit 36.2 % (36-46); Hemoglobin 12.5 g/dL (12.0-16.0); Lymphocytes Absolute Auto 1000 /uL (1100-4500); Lymphocytes Percent Auto 25.7 % (25-40); Mean Corpuscular HGB Conc 34.5 % (30-36); Mean Corpuscular Hemoglobin 30.2 PG (26-34); Mean Corpuscular Volume 87.5 fL (80-100); Monocytes Absolute Auto 300 /uL (0-900); Monocytes Percent Auto 7.5 % (3-14); Neutrophils Absolute Auto 2600 /uL (1500-7000); Platelet Count 244 X10^3/uL (150-400); Red Blood Cell Count 4.14 X10^6/uL (4.0-5.2); Red Cell Distribution Width 12.5 % (11.6-14.8)
[2022-08-23 08:49] LABS: Albumin Globulin Ratio 1.7 (1.0-2.8); Alkaline Phosphatase 46 U/L (38-126); Aspartate Aminotransferase 31 IU/L (14-36); BUN Creatinine Ratio 20.9 (6-22); Bilirubin Total 0.3 mg/dL (0.2-1.3); Blood Urea Nitrogen 14 mg/dL (7-17); Calcium 8.7 mg/dL (8.4-10.2); Carbon Dioxide 28 mmol/L (22-32); Chloride 101 mmol/L (98-107); Estimated Glomerular Filt Rate > 60 mL/min (>60); Globulin 2.4 g/dL (1.7-4.1); Glucose 115 mg/dL (80-110); HEMOLYSIS < 15 (0-50); Total Protein 6.4 g/dL (6.3-8.2)
[2022-08-23 08:59] LABS: NT-proBNP (BNP-Adult 18+) 43 pg/mL (<125)
[2022-08-23 09:01] LABS: Alanine Aminotransferase 22 IU/L (<35); Creatine Kinase 96 U/L (30-135); Lipase 210 U/L (23-300); Potassium 3.9 mmol/L (3.4-5.1); Sodium 135 mmol/L (137-145); Troponin I < 0.012 ng/mL (0.01-0.034)
== END 2022-08-23 10:21 | disposition home or self-care (01) ==
PROVIDERS: Emergency Medicine; Emergency Provider Emergency Medicine; PCP Family Medicine
DX: I10 Essential (primary) hypertension (principal); F41.9 Anxiety disorder, unspecified
CPT/HCPCS: 36415; 71045; 71275; 74174; 80053; 82550; 83690; 83880; 84484; 85025; 93005; 96360; 96361; 99284; 99285

== ENCOUNTER 2024-03-18 06:20 | Emergency (ER) | payer MEDICARE, OTHER, SELFPAY ==
[2024-03-18] VITALS (15 sets, daily range): BP systolic 120–200; BP diastolic 67–107; PULSE 79–95; RESP 16–20; TEMP 36.3–36.7; O2SAT 96–100; BMI 23.1
--- NOTE | 2024-03-18 06:39 | DI.RAD.S_ITS ---
PROCEDURE: XR CHEST 1V INDICATIONS: Chest pain TECHNIQUE: One view of the chest was acquired. COMPARISON: [facility], CR, XR CHEST 1V, 08/23/2022, 7:06. FINDINGS: Surgical changes and devices: None. Lungs and pleura: Lungs are clear. No pleural effusions or pneumothorax. Mediastinum: Mediastinal contours appear normal. Heart size is normal. Bones and chest wall: No suspicious bony lesions. Overlying soft tissues appear unremarkable. IMPRESSION: No acute cardiopulmonary pathology. No discrepancies. Dictated by: Marlon Pérez M.D. on 03/18/2024 at 9:36 Approved by: Marlon Pérez M.D. on 03/18/2024 at 9:37
--- NOTE | 2024-03-18 06:48 | EKG_ITS ---
[place] [id number] [place] [id number] Test Date: 2024-03-18 Pat Name: Zaira Martinez Department: [facility] Room: Gender: Female [employer] Manager: : 1955 Requested By: Order Number: [id number] Reading MD: Jimmy Hairston Measurements Intervals [place] Rate: 84 P: 55 IN: 146 QRS: 14 QRSD: 78 T: 36 QT: 374 QTc: 441 Interpretive Statements Normal sinus rhythm Septal infarct , age undetermined Electronically Signed On 03-18-2024 11:26:31 PDT by Jimmy Hairston
--- NOTE | 2024-03-18 06:51 | ED_ITS ---
HPI - Chest Pain <Darshan Su DO - Last Filed: 03/23/24 18:17> General Chief Complaint: Chest Pain Stated Complaint: light headed, weight loss, thumping in chest, Time Seen by Provider: 03/18/24 06:22 Source: patient Mode of arrival: Ambulatory Limitations: no limitations History of Present Illness HPI narrative: Patient is a 69-year-old female. History of hypertension. Is here for evaluation of what she describes as a ?thumping? in her abdomen and in her lower chest. She states the symptoms have been going on for the past couple days. She states she has had these symptoms 2 times in the past. Each proximally 1 year ago. At that time she was seen in the emergency department and had a ?workup? and was diagnosed with hypertension. She was not had the symptoms since then until this particular episode. She states that really the symptoms have been present for the past month or so intermittently but become more persistent over the past 24-48 hours. She states that she was hungry and when she tries to eat something the ?thumping? gets worse and then she loses her appetite. She reports having some fatigue and light headedness. Has had weight loss because of the decreased eating. No urinary symptoms. No shortness of breath. No lower extremity swelling. No change in bowel habits. She was not taken her blood pressure medications yet this morning. Related Data Home Medications Medication Instructions Recorded Confirmed No Known Home Medications 02/07/18 Previous Rx's Medication Instructions Recorded oxycodone 5 mg tablet 5 mg PO Q4-6H PRN pain #50 tabs 08/21/18 Allergies Allergy/AdvReac Type Severity Reaction Status Date / Time codeine AdvReac Nausea Verified 08/21/18 13:55 Review of Systems <Darshan Su DO - Last Filed: 03/23/24 18:17> Review of Systems ROS Unobtainable: All systems reviewed & are unremarkable except as noted in HPI and below Patient History <Darshan Su DO - Last Filed: 03/23/24 18:17> Medical History Ankle dislocation Ankle fracture Measles (~1964) Surgical History [place] teeth extracted Social History marital status: number of children: 0 household members: spouse occupational status: other (retired) Smoking Status: Never smoker alcohol intake: current substance use type: does not use Smoking Status: Never smoker alcohol intake frequency: a few times a month Substance Use Type: does not use Exam <Darshan Su DO - Last Filed: 03/23/24 18:17> Initial Vital Signs Initial Vital Signs: Vital Signs Temperature 97.3 F L 03/18/24 06:25 Pulse Rate 94 H 03/18/24 06:25 Respiratory Rate 16 03/18/24 06:25 Blood Pressure 200/107 H 03/18/24 06:25 Pulse Oximetry 99 03/18/24 06:25 Oxygen Delivery Method Room Air 03/18/24 06:25 Const General: cooperative, comfortable and No ill appearing HENMT Head: normal to inspection and normocephalic Resp Effort & Inspection: normal respiratory effort Auscultation: clear to auscultation bilaterally Cardio Rate: regular rate Rhythm: regular rhythm GI Inspection: normal to inspection and non-distended Palpation: soft and No tender Skin General: no rashes or lesions noted Neuro General: patient alert, patient awake, patient oriented x3 and moves all extremities Extrem General: No edema <Smitha Meyer DO - Last Filed: 03/18/24 17:17> Initial Vital Signs Initial Vital Signs: Vital Signs Temperature 97.3 F L 03/18/24 06:25 Pulse Rate 94 H 03/18/24 06:25 Respiratory Rate 16 03/18/24 06:25 Blood Pressure 200/107 H 03/18/24 06:25 Pulse Oximetry 99 03/18/24 06:25 Oxygen Delivery Method Room Air 03/18/24 06:25 Course <Darshan Su DO - Last Filed: 03/23/24 18:17> Orders Ordered: Discontinued Medications Lisinopril (Lisinopril 20 Mg Tablet) 20 mg PO NOW ONE Stop: 03/18/24 06:52 Last Admin: 03/18/24 07:20 Dose: 20 mg Documented By: MARIO Vital Signs Vital signs: Vital Signs - 8 hr 03/18/24 09:30 03/18/24 09:30 03/18/24 09:46 Temperature Pulse Rate 87 Respiratory Rate Blood Pressure 138/81 135/77 Pulse Oximetry 98 Oxygen Delivery Method 03/18/24 09:46 03/18/24 10:00 03/18/24 10:00 Temperature Pulse Rate 86 83 Respiratory Rate Blood Pressure 120/67 Pulse Oximetry 99 99 Oxygen Delivery Method 03/18/24 10:23 Temperature 98.1 F Pulse Rate 83 Respiratory Rate 20 Blood Pressure 120/67 Pulse Oximetry 98 Oxygen Delivery Method Room Air <Smitha Meyer DO - Last Filed: 03/18/24 17:17> Orders Ordered: Discontinued Medications Lisinopril (Lisinopril 20 Mg Tablet) 20 mg PO NOW ONE Stop: 03/18/24 06:52 Last Admin: 03/18/24 07:20 Dose: 20 mg Documented By: MPO Vital Signs Vital signs: Vital Signs - 8 hr 03/18/24 09:30 03/18/24 09:30 03/18/24 09:46 Temperature Pulse Rate 87 Respiratory Rate Blood Pressure 138/81 135/77 Pulse Oximetry 98 Oxygen Delivery Method 03/18/24 09:46 03/18/24 10:00 03/18/24 10:00 Temperature Pulse Rate 86 83 Respiratory Rate Blood Pressure 120/67 Pulse Oximetry 99 99 Oxygen Delivery Method 03/18/24 10:23 Temperature 98.1 F Pulse Rate 83 Respiratory Rate 20 Blood Pressure 120/67 Pulse Oximetry 98 Oxygen Delivery Method Room Air MDM - Chest Pain <Darshan Su DO - Last Filed: 03/23/24 18:17> Lab Data 03/18/24 07:28 03/18/24 07:28 Labs: Lab Results 03/18/24 03/18/24 Range/Units 07:28 09:30 WBC 4.9 (4.5-11.0) X10^3/uL RBC 4.51 (4.0-5.2) X10^6/uL Hgb 13.9 (12.0-16.0) g/dL Hct 39.9 (36-46) % MCV 88.3 (80-100) fL MCH 30.9 (26-34) PG MCHC 34.9 (30-36) % RDW 13.0 (11.6-14.8) % Plt Count 302 (150-400) X10^3/uL Neut % (Auto) 66.6 (50-75) % Lymph % (Auto) 22.2 L (25-40) % [place] % (Auto) 9.0 (3-14) % Eos % (Auto) 1.3 L (2-4) % Baso % (Auto) 0.9 (0-2) % Neut # (Auto) 3300 (6157-8197) /uL Lymph # (Auto) 1100 (3849-6667) /uL [place] # (Auto) 400 (0-900) /uL Eos # (Auto) 100 (0-450) /uL Baso # (Auto) 0 (0-100) /uL Sodium 133 L (137-145) mmol/L Potassium 3.9 (3.4-5.1) mmol/L Chloride 98 (98-107) mmol/L Carbon Dioxide 28 (22-32) mmol/L BUN 10 (7-17) mg/dL Creatinine 0.70 (0.52-1.04) mg/dL Estimated GFR > 60 (>60) mL/min BUN/Creatinine Ratio 14.3 (6-22) Glucose 111 H (80-110) mg/dL Calcium 9.4 (8.4-10.2) mg/dL Total Bilirubin 0.7 (0.2-1.3) mg/dL AST 36 (14-36) IU/L ALT 18 (<35) IU/L Alkaline Phosphatase 50 (38-126) U/L Total Creatine Kinase 83 (30-135) U/L Troponin I < 0.012 < 0.012 (0.01-0.034) ng/mL Total Protein 7.4 (6.3-8.2) g/dL Albumin 4.7 (3.5-5.0) g/dL Globulin 2.7 (1.7-4.1) g/dL Albumin/Globulin Ratio 1.7 (1.0-2.8) Lipase 293 (23-300) U/L ECG Data Attestation: I personally reviewed and interpreted this ECG as follows: Interpretation: Sinus rhythm Ventricular rate of 84 Normal axis Normal QRS Normal QTC No ST T wave changes MDM Narrative Medical decision making narrative: Patient is hypertensive. She was not taken her blood pressure medications yet this morning so will start with her normal 20 mg dose of lisinopril. EKG is unremarkable. She stated that this was similar to the same symptoms that she had about 1 year ago where it seemed to be related to her high blood pressure. Labs ordered. Chest x-ray pending. Care turned over to day provider to follow- up and disposition. <Smitha Meyer, DO - Last Filed: 03/18/24 17:17> Lab Data Labs: Lab Results 03/18/24 03/18/24 Range/Units 07:28 09:30 WBC 4.9 (4.5-11.0) X10^3/uL RBC 4.51 (4.0-5.2) X10^6/uL Hgb 13.9 (12.0-16.0) g/dL Hct 39.9 (36-46) % MCV 88.3 (80-100) fL MCH 30.9 (26-34) PG MCHC 34.9 (30-36) % RDW 13.0 (11.6-14.8) % Plt Count 302 (150-400) X10^3/uL Neut % (Auto) 66.6 (50-75) % Lymph % (Auto) 22.2 L (25-40) % [place] % (Auto) 9.0 (3-14) % Eos % (Auto) 1.3 L (2-4) % Baso % (Auto) 0.9 (0-2) % Neut # (Auto) 3300 (7546-1555) /uL Lymph # (Auto) 1100 (6632-9127) /uL [place] # (Auto) 400 (0-900) /uL Eos # (Auto) 100 (0-450) /uL Baso # (Auto) 0 (0-100) /uL Sodium 133 L (137-145) mmol/L Potassium 3.9 (3.4-5.1) mmol/L Chloride 98 (98-107) mmol/L Carbon Dioxide 28 (22-32) mmol/L BUN 10 (7-17) mg/dL Creatinine 0.70 (0.52-1.04) mg/dL Estimated GFR > 60 (>60) mL/min BUN/Creatinine Ratio 14.3 (6-22) Glucose 111 H (80-110) mg/dL Calcium 9.4 (8.4-10.2) mg/dL Total Bilirubin 0.7 (0.2-1.3) mg/dL AST 36 (14-36) IU/L ALT 18 (<35) IU/L Alkaline Phosphatase 50 (38-126) U/L Total Creatine Kinase 83 (30-135) U/L Troponin I < 0.012 < 0.012 (0.01-0.034) ng/mL Total Protein 7.4 (6.3-8.2) g/dL Albumin 4.7 (3.5-5.0) g/dL Globulin 2.7 (1.7-4.1) g/dL Albumin/Globulin Ratio 1.7 (1.0-2.8) Lipase 293 (23-300) U/L Imaging Data Chest x-ray: Radiologist's Impression: [place] read shows cardio mediastinal silhouette not enlarged pulmonary vasculature is unremarkable no focal consolidation or effusion no pneumothorax. CTA chest/abd/pelvis: Radiologist's Impression: Close Chest/Abdomen/Pelvis CTA (Signed) Clayton Magaña - 03/18/24 Chest X-Ray 03/18/24 Launch?[place] [address] CT Scan Report Signed Patient: Zaira Martinez MR#: [id number] : 1955 Acct:[id number] Age/Sex: 69 / F Date of Service: 03/18/24 Loc: ED Accession Number: [id number] Procedure: CT angio chest abdomen pelvis Ordering Provider: Smitha Meyer D.O. PROCEDURE: CT ANGIO CHEST ABDOMEN PELVIS INDICATIONS: bounding in chest/abd, htn TECHNIQUE: Precontrast 5 mm thick sections acquired from the lung apices to the iliac crests. After the administration of intravenous contrast, 2.5 mm thick sections again acquired from the lung apices to the iliac crests. Maximum intensity projection (MIP) oblique sagittal and coronal reformats were then acquired. For radiation dose reduction, the following was used: automated exposure control. COMPARISON: [facility], CT, CT ANGIO CHEST ABDOMEN PELVIS, 08/23/2022, 8:06. FINDINGS: Image quality: Diagnostic. AORTA: No aortic aneurysm. No acute aortic syndrome. Mild aortic atherosclerosis. Short segment less than 50% narrowing of the proximal left subclavian artery again noted. Left common carotid artery arises from the brachiocephalic trunk, a normal anatomic variant. Mild atherosclerotic disease is seen at the origins of the mesenteric and renal arteries without hemodynamically significant stenosis. CHEST: Lower Neck: No enlarged lymph nodes. Thyroid: No thyroid nodules which require sonographic evaluation. Axillae: No enlarged lymph nodes. Chest Wall: Unremarkable. Lungs and Pleura: No pneumothorax or pleural effusions. No consolidation or suspicious nodules. Heart: Heart size is normal. No pericardial effusion. Thoracic Vessels: Pulmonary arteries demonstrate normal size. Mediastinum and Pina: No enlarged lymph nodes. Esophagus: No wall thickening. No hiatal hernia. ABDOMEN: Liver: No solid mass. Stable hypoattenuating lesions in the inferior left hepatic lobe, likely cysts. Gallbladder: No radiopaque gallstones or wall thickening. Biliary ducts: No biliary dilation. Pancreas: No ductal dilation. Spleen: Size is within normal limits. Adrenal Glands: No adrenal nodules. Kidneys and Ureters: No hydronephrosis. No solid mass. No complex renal cystic lesion which requires follow up. Stomach and Bowel: Multiple diverticula are seen throughout the colon without signs of acute diverticulitis. Normal retrocecal appendix. Small bowel loops and stomach are unremarkable. Peritoneum: No abnormal intraperitoneal fluid. No free air. Ventral Wall: No hernia. Abdominal Nodes: No retroperitoneal or mesenteric adenopathy by size criteria. Vessels: Inferior vena cava is normal in size. PELVIS: Pelvic Organs: Anteverted uterus. No suspicious adnexal mass.. Bladder: Unremarkable. Pelvic Nodes: No enlarged lymph nodes. Miscellaneous: Small fat containing inguinal hernias. Bones: No aggressive osseous lesion. Degenerative changes are seen in the pubic symphysis, hips, sacroiliac joints, and spine. IMPRESSION: 1. No aortic aneurysm or acute aortic syndrome. No central pulmonary embolus. 2. No acute abnormality identified in the chest, abdomen, or pelvis. 3. Colonic diverticulosis without signs of acute diverticulitis. Approved by: Clayton Magaña M.D. on 03/18/2024 at 8:59 ECG Data Prior ECG tracings: available for review Interpretation: Sinus rhythm Ventricular rate of 84 Normal axis Normal QRS Normal QTC No ST T wave changes Mank: Agree with the above read, no change from 08/23/2022. EKG 2. Shows sinus rhythm rate 84 MT 146 QRS 78 QTC of 441, no acute ST elevation or depression noted. MDM Narrative Medical decision making narrative: Patient is hypertensive. She was not taken her blood pressure medications yet this morning so will start with her normal 20 mg dose of lisinopril. EKG is unremarkable. She stated that this was similar to the same symptoms that she had about 1 year ago where it seemed to be related to her high blood pressure. Labs ordered. Chest x-ray pending. Care turned over to day provider to follow- up and disposition. 03/18/2024 Dr. Meyer: Patient signed out to myself by Dr. Su. Reviewed HPI, patient is seen and independently evaluated by myself. Labs reviewed, chest x- ray and EKG. Patient was hypertensive on arrival, had not had her morning blood pressure medication which was ordered by Dr. Su. Labs show white count of 4.9 hemoglobin of 13.9 platelets of 302. Sodium 133 potassium 3.9 chloride 98 CO2 of 28 BUN 10 creatinine 0.7 glucose of 111 LFTs are normal troponins less than 0.012 with a lipase of 293. Troponin was repeated and is negative. Chest x-ray shows no acute feed on overnight read. EKG shows sinus rhythm rate [address] changes similar to prior from August of 2022. CTA chest abdomen pelvis shows no acute aneurysm or dissection, colonic diverticulosis without signs of diverticulitis. No central pulmonary emboli, short segment less than 50% narrowing of the proximal left subclavian artery again noted. Patient did have a CT angio of the chest abdomen pelvis on August 23, 2022 for similar sensations at that time had some mild atherosclerotic change but thoracic in the abdominal aorta were normal, mild left subclavian stenosis and extensive sigmoid diverticulosis without evidence of diverticulitis was found. Repeat blood pressures 190s systolic about an hour after patient's medications on board. Labs are overall appropriate chest x-ray shows no acute change, normal EKG patient describes a bounding sensation in her chest and belly. Was here for similar had negative CT angio chest abdomen pelvis to rule out dissection or aneurysm discussed with patient risks versus benefits whether to pursue repeat imaging. Last imaging was about a year and a half ago. After discussion we will repeat CT angio. 0906: Blood pressure has improved here in department most recent is 130 systolic. Discharge Plan Departure Patient Disposition: Home Clinical Impression: Bounding pulse Activity Restrictions/Additional Instructions: Your imaging shows some narrowing of the subclavian artery in the left, this was seen on your prior imaging there are no changes to the aorta today. There is also signs of diverticulosis but no signs of diverticulitis or infection. Let us your physician know about the narrowing in your subclavian artery. Recommend to continue to monitor blood pressure if it continues to be elevated on a regular basis your physician may need to adjust your medications. Please return for new or worsening symptoms, lightheadedness or passing out, new chest pain, shortness of breath, palpitations or fluttering sensation, new swelling of extremities, persistent vomiting or other new or concerning changes. Prescriptions: No Action No Known Home Medications oxycodone 5 mg tablet 5 mg PO Q4-6H PRN (Reason: pain) Qty: 50 0RF Rx Instructions: May take 1-2 tab every 4-6 hours as needed for pain Referrals: Rosa Arellano DO [Primary Care Provider] - Stand Alone Forms: Patient Portal/API/Survey
[2024-03-18] MEDS: lisinopriL 20 MG TABLET PO (07:20)
[2024-03-18 07:35] LABS: Add Manual Diff / Slide Review NO; Basophils Absolute Auto 0 /uL (0-100); Basophils Percent Auto 0.9 % (0-2); Eosinophils Absolute Auto 100 /uL (0-450); Eosinophils Percent Auto 1.3 % (2-4); Hematocrit 39.9 % (36-46); Hemoglobin 13.9 g/dL (12.0-16.0); Lymphocytes Absolute Auto 1100 /uL (1100-4500); Lymphocytes Percent Auto 22.2 % (25-40); Mean Corpuscular HGB Conc 34.9 % (30-36); Mean Corpuscular Hemoglobin 30.9 PG (26-34); Mean Corpuscular Volume 88.3 fL (80-100); Monocytes Absolute Auto 400 /uL (0-900); Neutrophils Absolute Auto 3300 /uL (1500-7000); Neutrophils Percent Auto 66.6 % (50-75); Platelet Count 302 X10^3/uL (150-400); Red Blood Cell Count 4.51 X10^6/uL (4.0-5.2); White Blood Cell Count 4.9 X10^3/uL (4.5-11.0)
[2024-03-18 07:47] LABS: Creatine Kinase 83 U/L (30-135)
[2024-03-18 07:48] LABS: Alanine Aminotransferase 18 IU/L (<35); Albumin 4.7 g/dL (3.5-5.0); Albumin Globulin Ratio 1.7 (1.0-2.8); Alkaline Phosphatase 50 U/L (38-126); Aspartate Aminotransferase 36 IU/L (14-36); BUN Creatinine Ratio 14.3 (6-22); Bilirubin Total 0.7 mg/dL (0.2-1.3); Blood Urea Nitrogen 10 mg/dL (7-17); Calcium 9.4 mg/dL (8.4-10.2); Carbon Dioxide 28 mmol/L (22-32); Chloride 98 mmol/L (98-107); Estimated Glomerular Filt Rate > 60 mL/min (>60); Globulin 2.7 g/dL (1.7-4.1); Glucose 111 mg/dL (80-110); HEMOLYSIS 15 (0-50); Lipase 293 U/L (23-300); Potassium 3.9 mmol/L (3.4-5.1); Sodium 133 mmol/L (137-145); Total Protein 7.4 g/dL (6.3-8.2)
[2024-03-18 08:00] LABS: Troponin I < 0.012 ng/mL (0.01-0.034)
--- NOTE | 2024-03-18 08:19 | DI.CT.S_ITS ---
PROCEDURE: CT ANGIO CHEST ABDOMEN PELVIS INDICATIONS: bounding in chest/abd, htn TECHNIQUE: Precontrast 5 mm thick sections acquired from the lung apices to the iliac crests. After the administration of intravenous contrast, 2.5 mm thick sections again acquired from the lung apices to the iliac crests. Maximum intensity projection (MIP) oblique sagittal and coronal reformats were then acquired. For radiation dose reduction, the following was used: automated exposure control. COMPARISON: [facility], CT, CT ANGIO CHEST ABDOMEN PELVIS, 08/23/2022, 8:06. FINDINGS: Image quality: Diagnostic. AORTA: No aortic aneurysm. No acute aortic syndrome. Mild aortic atherosclerosis. Short segment less than 50% narrowing of the proximal left subclavian artery again noted. Left common carotid artery arises from the brachiocephalic trunk, a normal anatomic variant. Mild atherosclerotic disease is seen at the origins of the mesenteric and renal arteries without hemodynamically significant stenosis. CHEST: Lower Neck: No enlarged lymph nodes. Thyroid: No thyroid nodules which require sonographic evaluation. Axillae: No enlarged lymph nodes. Chest Wall: Unremarkable. Lungs and Pleura: No pneumothorax or pleural effusions. No consolidation or suspicious nodules. Heart: Heart size is normal. No pericardial effusion. Thoracic Vessels: Pulmonary arteries demonstrate normal size. Mediastinum and Pina: No enlarged lymph nodes. Esophagus: No wall thickening. No hiatal hernia. ABDOMEN: Liver: No solid mass. Stable hypoattenuating lesions in the inferior left hepatic lobe, likely cysts. Gallbladder: No radiopaque gallstones or wall thickening. Biliary ducts: No biliary dilation. Pancreas: No ductal dilation. Spleen: Size is within normal limits. Adrenal Glands: No adrenal nodules. Kidneys and Ureters: No hydronephrosis. No solid mass. No complex renal cystic lesion which requires follow up. Stomach and Bowel: Multiple diverticula are seen throughout the colon without signs of acute diverticulitis. Normal retrocecal appendix. Small bowel loops and stomach are unremarkable. Peritoneum: No abnormal intraperitoneal fluid. No free air. Ventral Wall: No hernia. Abdominal Nodes: No retroperitoneal or mesenteric adenopathy by size criteria. Vessels: Inferior vena cava is normal in size. PELVIS: Pelvic Organs: Anteverted uterus. No suspicious adnexal mass.. Bladder: Unremarkable. Pelvic Nodes: No enlarged lymph nodes. Miscellaneous: Small fat containing inguinal hernias. Bones: No aggressive osseous lesion. Degenerative changes are seen in the pubic symphysis, hips, sacroiliac joints, and spine. IMPRESSION: 1. No aortic aneurysm or acute aortic syndrome. No central pulmonary embolus. 2. No acute abnormality identified in the chest, abdomen, or pelvis. 3. Colonic diverticulosis without signs of acute diverticulitis. Approved by: Clayton Magaña M.D. on 03/18/2024 at 8:59
--- NOTE | 2024-03-18 09:31 | EKG_ITS ---
[address] [address] Test Date: 2024-03-18 Pat Name: Zaira Martinez Department: Room: Gender: Female [employer] Farmer: AMIRA : 1955 Requested By: Order Number: [id number] Reading MD: Ronak Escalante Measurements Intervals [place] Rate: 80 P: 58 IA: 144 QRS: 18 QRSD: 74 T: 34 QT: 378 QTc: 435 Interpretive Statements Normal sinus rhythm Electronically Signed On 03-24-2024 18:48:14 PST by Ronak Escalante
[2024-03-18 10:00] LABS: Troponin I < 0.012 ng/mL (0.01-0.034)
== END 2024-03-18 10:24 | disposition home or self-care (01) ==
PROVIDERS: Emergency Medicine; Emergency Provider Emergency Medicine; PCP Family Medicine
DX: R00.0 Tachycardia, unspecified (principal); R07.9 Chest pain, unspecified
CPT/HCPCS: 36415; 71045; 71275; 74174; 80053; 82550; 83690; 84484; 85025; 93005; 99284; Q9967

== ENCOUNTER → 2024-07-09 07:14 | Outpatient (CLI) | payer MEDICARE, OTHER, SELFPAY ==
[2024-07-09 08:24] LABS: Hematocrit 41.1 % (36-46); Hemoglobin 14.2 g/dL (12.0-16.0); Mean Corpuscular HGB Conc 34.6 % (30-36); Mean Corpuscular Hemoglobin 30.9 PG (26-34); Mean Corpuscular Volume 89.2 fL (80-100); Platelet Count 352 X10^3/uL (150-400); Red Blood Cell Count 4.61 X10^6/uL (4.0-5.2); Red Cell Distribution Width 13.1 % (11.6-14.8); White Blood Cell Count 3.7 X10^3/uL (4.5-11.0)
[2024-07-09 08:39] LABS: Alanine Aminotransferase 25 IU/L (<35); Albumin 4.9 g/dL (3.5-5.0); Alkaline Phosphatase 57 U/L (38-126); Aspartate Aminotransferase 42 IU/L (14-36); BUN Creatinine Ratio 11.6 (6-22); Bilirubin Total 0.5 mg/dL (0.2-1.3); Blood Urea Nitrogen 8 mg/dL (7-17); Calcium 9.7 mg/dL (8.4-10.2); Carbon Dioxide 27 mmol/L (22-32); Chloride 98 mmol/L (98-107); Cholesterol 243 mg/dL (140-199); Estimated Glomerular Filt Rate > 60 mL/min (>60); Globulin 2.5 g/dL (1.7-4.1); Glucose 101 mg/dL (80-110); HDL Cholesterol 69 mg/dL (40-60); HEMOLYSIS < 15 (0-50); LDL Cholesterol Calculated 153 mg/dL (<100); Potassium 4.4 mmol/L (3.4-5.1); Sodium 135 mmol/L (137-145); Total Protein 7.4 g/dL (6.3-8.2); Triglycerides 104 mg/dL (35-150)
[2024-07-09 11:44] LABS: Creatinine Urine Random 70.38 mg/dL
--- NOTE | 2024-07-09 14:26 | DI.RAD.S_ITS ---
PROCEDURE: XR DEXA AXIAL SKELETON INDICATIONS: Bone Denisty Screening COMPARISON: None. FINDINGS: Lumbar Spine: Bone mineral density 0.856 g/cm2, T score -1.5. Left Femoral Neck: Bone mineral density 0.569 g/cm2, T score -2.5 Left Hip: Bone mineral density 0.704 g/cm2, T score -2.0. Fracture Risk Calculation (when applicable): 10-year fracture risk of a major osteoporotic fracture 14 percent and of a hip fracture 3.5 percent. (T score greater or equal to -1.0 to: NORMAL) (T score from -1.1 to -2.4: OSTEOPENIA) (T score less than or equal to -2.5: OSTEOPOROSIS) IMPRESSION: Osteoporosis---recommend repeat DEXA in 2 years or less for reassessment of response to treatment. Follow-up guidelines as follows: Osteoporosis: Consider a repeat DEXA and Vertebral Fracture Assessment (VFA) exam in 2 years or sooner if medically necessary, to reassess this patient's status. Osteopenia: Consider a repeat DEXA in 2-3 years to reassess this patient's status, or if there is a new clinical indication. Normal: Consider a repeat DEXA in 5 years or sooner, or if there is a new clinical indication. All treatment decisions require clinical judgment and consideration of individual patient factors, including patient preferences, comorbidities, previous drug use, risk factors not captured in the FRAX model (e.g., frailty, falls, vitamin D deficiency, increased bone turnover, interval significant decline in bone density ) and possible under- or over-estimation of fracture risk by FRAX. In addition, the NOF Guide recommends that FDA-approved medical therapies be considered in postmenopausal women and men age >= 50 years with a: * Hip or vertebral (clinical or morphometric) fracture * T-score of <=-2.5 at the spine or hip * Ten-year fracture probability by FRAX of >= 3% for hip fracture or >=20% for major osteoporotic fracture. Dictated by: Marcus Jolly M.D. on 07/09/2024 at 21:52 Approved by: Marcus Jolly M.D. on 07/09/2024 at 21:54
[2024-07-10 15:09] LABS: Interpretation Negative (Negative)
== END ==
PROVIDERS: PCP Family Medicine; Referring Provider Family Medicine; Visit Provider Family Medicine
DX: M81.0 Age-related osteoporosis without current pathological fracture (principal); Z13.6 Encounter for screening for cardiovascular disorders; R10.9 Unspecified abdominal pain
CPT/HCPCS: 77080; 80053; 80061; 82043; 82570; 83013; 85027

== ENCOUNTER 2024-09-09 11:11 | Day surgery (SDC) | payer MEDICARE, OTHER, SELFPAY ==
[2024-09-09 11:31] VITALS: BP 174/93; PULSE 104; RESP 16; TEMP 36.2; O2SAT 98
[2024-09-09] MEDS: LACTATED RINGERS 1,000 ML 84 ML IV (11:41)
--- NOTE | 2024-09-09 12:01 | PM.PREOP ---
Pre-operative Note COVID-19 COVID-19 status: Not tested Interval Note History & Physical reviewed/Exam performed by Physician: Yes Changes to H&P: No ASA Class (for procedural sedation): II
--- NOTE | 2024-09-09 12:02 | PM.OP.COLON ---
Operative Date/Time/Diagnoses Date of procedure: 09/09/24 Pre-op diagnosis: See indication and findings Procedure & Clinicians Study performed: Colonoscopy Same procedure as scheduled: Yes Indications: Abdominal pain and screening Surgeon: Jany Blackwood Procedure Notes Procedure in detail: After informed consent was obtained the patient was placed in left lateral decubitus position. The video colonoscope was introduced the rectum slowly advanced cecum. Preparation was good. On slow withdrawal mucosa was carefully examined. The scope was removed. The patient tolerated procedure well. Blood loss none Complications none Sedation mac Findings 1. Extensive Sigmoid and left-sided diverticulosis 2. Otherwise negative colonoscopy to cecum. Zaira should have follow-up colonoscopy in 5-10 years. No cause for abdominal discomfort was found. We would discussed this likelihood when she was in the office.
[2024-09-09 12:33] VITALS: BP 96/65; PULSE 79; RESP 15; TEMP 36.2; O2SAT 95
[2024-09-09 12:38] VITALS: BP 102/68; PULSE 78; RESP 16; O2SAT 96
[2024-09-09 12:44] VITALS: BP 102/71; PULSE 79; RESP 18; TEMP 36.2; O2SAT 98
== END 2024-09-09 12:57 | disposition home or self-care (01) ==
PROVIDERS: PCP Family Medicine; Referring Provider Internal Medicine Gastroenterology; Visit Provider Internal Medicine Gastroenterology
PROC: 0DJD8ZZ Inspection of Lower Intestinal Tract, Via Natural or Artificial Opening Endoscopic (ICD-10-PCS; CPT 45378; principal; 2024-09-09 12:30)
DX: R10.9 Unspecified abdominal pain (principal); F41.9 Anxiety disorder, unspecified; K57.30 Diverticulosis of large intestine without perforation or abscess without bleeding
CPT/HCPCS: 45378; J2704

== ENCOUNTER → 2025-03-02 08:54 | Outpatient (CLI) | payer MEDICARE, OTHER, SELFPAY ==
[2025-03-02 09:50] LABS: Hematocrit 37.0 % (36-46); Hemoglobin 12.9 g/dL (12.0-16.0); Mean Corpuscular HGB Conc 34.7 % (30-36); Mean Corpuscular Hemoglobin 30.9 PG (26-34); Mean Corpuscular Volume 89.1 fL (80-100); Platelet Count 313 X10^3/uL (150-400)
[2025-03-02 10:06] LABS: Hemoglobin A1C% w Est Avg Glu 4.9 % (4.0-6.0)
[2025-03-02 10:17] LABS: Alanine Aminotransferase 20 IU/L (<35); Albumin 4.3 g/dL (3.5-5.0); Albumin Globulin Ratio 1.7 (1.0-2.8); Alkaline Phosphatase 52 U/L (38-126); Blood Urea Nitrogen 10 mg/dL (7-17); Calcium 9.6 mg/dL (8.4-10.2); Carbon Dioxide 29 mmol/L (22-32); Chloride 98 mmol/L (98-107); Cholesterol 210 mg/dL (140-199); Estimated Glomerular Filt Rate > 60 mL/min (>60); Globulin 2.6 g/dL (1.7-4.1); Glucose 105 mg/dL (70-99); HDL Cholesterol 73 mg/dL (40-60); HEMOLYSIS < 15 (0-50); Potassium 4.4 mmol/L (3.4-5.1); Sodium 132 mmol/L (137-145); Total Protein 6.9 g/dL (6.3-8.2); Triglycerides 74 mg/dL (35-150)
[2025-03-02 10:34] LABS: Vitamin D 25 Hydroxy (D3) 63.7 ng/mL (30.0-100.0)
[2025-03-02 11:07] LABS: Vitamin B12 > 1000 pg/mL (239-931)
[2025-03-02 14:50] LABS: Hep C Virus Ab w/Reflex Quant NEGATIVE s/c (NEGATIVE)
== END ==
PROVIDERS: PCP Family Medicine; Referring Provider Family Medicine; Visit Provider Family Medicine
DX: E78.00 Pure hypercholesterolemia, unspecified (principal); R73.01 Impaired fasting glucose; M81.0 Age-related osteoporosis without current pathological fracture; Z11.59 Encounter for screening for other viral diseases; I10 Essential (primary) hypertension; Z13.9 Encounter for screening, unspecified; Z13.1 Encounter for screening for diabetes mellitus; F41.9 Anxiety disorder, unspecified; K57.30 Diverticulosis of large intestine without perforation or abscess without bleeding; R74.01 Elevation of levels of liver transaminase levels
CPT/HCPCS: 36415; 80053; 80061; 82306; 82607; 83036; 85027; 86803